=== PATIENT | male | born 1955 | race Caucasian/White ===

== ENCOUNTER 2017-04-19 14:47 | Emergency (ER) | payer MEDICARE ==
[2017-04-19 15:42] LABS: ABSOLUTE EOSINOPHILS # (AUTO) 1.1 10^3/uL (0.0-0.6); ABSOLUTE LYMPHOCYTES (AUTO) 0.9 10^3/uL (0.5-4.7); ABSOLUTE MONOCYTES (AUTO) 0.7 10^3/uL (0.1-1.4); ABSOLUTE NEUT (AUTO) 3.8 10^3/uL (1.7-8.2); BASOPHILS % (AUTO) 0.7 % (0-2); EOSINOPHILS % (AUTO) 17.1 % (0-6); HEMATOCRIT 43.2 % (37.9-51.0); HEMOGLOBIN 14.9 g/dL (13.5-17.0); HGB HCT DIFFERENCE 1.5; LYMPHOCYTES % (AUTO) 13.7 % (13-45); MEAN CORPUSCULAR HEMOGLOBIN 33.6 pg (27.0-33.4); MEAN CORPUSCULAR HGB CONC 34.4 g/dL (32.0-36.0); MEAN CORPUSCULAR VOLUME 98 fl (80-97); MONOCYTES % (AUTO) 10.2 % (3-13); RED BLOOD COUNT 4.43 10^6/uL (4.35-5.55); RED CELL DISTRIBUTION WIDTH 13.8 % (11.5-14.0); SEGMENTED NEUTROPHILS % (AUTO) 58.3 % (42-78); WHITE BLOOD COUNT 6.6 10^3/uL (4.0-10.5)
[2017-04-19 16:08] LABS: ALANINE AMINOTRANSFERASE 56 U/L (21-72); ALBUMIN 4.2 g/dL (3.5-5.0); ALKALINE PHOSPHATASE 136 U/L (38-126); ANION GAP 13 (5-19); ASPARTATE AMINO TRANSFERASE 34 U/L (17-59); BILIRUBIN,DIRECT 0.5 mg/dL (0.0-0.4); BILIRUBIN,TOTAL 0.5 mg/dL (0.2-1.3); BLOOD UREA NITROGEN 11 mg/dL (7-20); CALCIUM 9.5 mg/dL (8.4-10.2); CARBON DIOXIDE 22 mmol/L (22-30); CHLORIDE 107 mmol/L (98-107); CREATININE RESULT 1.19 mg/dL (0.52-1.25); GLUCOSE 92 mg/dL (75-110); POTASSIUM 4.1 mmol/L (3.6-5.0); SODIUM 141.5 mmol/L (137-145); TOTAL PROTEIN 7.2 g/dL (6.3-8.2)
--- NOTE | 2017-04-19 16:42 | ER Document Report ---
ED Skin Rash/Insect Bite/Abscs - General Chief Complaint: Skin Problem Stated Complaint: WOUND PAIN Time Seen by Provider: 04/19/17 15:14 Mode of Arrival: Ambulatory Information source: Patient Notes: Patient is a 62-year-old male with history of chronic wounds to bilateral lower legs who presents to the ER today for what he states is a developing wound to the left lower leg that was not there before. Patient states that it "just popped up this morning, was a blister and I popped it. Then it turned into this " he denies any fevers or chills. Admits to drainage that is yellow from the area. He states that his chronic wound on the right leg started from a brown recluse bite years ago. He has gone to the wound clinic in the past. He has not been doing anything for this. He also complains of wound to the right wrist where his dog accidentally scratched him. He states that happened a week ago. TRAVEL OUTSIDE OF THE [place] IN LAST 30 DAYS: No - Related Data Allergies/Adverse Reactions: No Known Allergies Allergy (Unverified 04/19/17 17:21) Past Medical History - General Information source: Patient - Social History Smoking Status: Current Every Day Smoker Family History: Reviewed & Not Pertinent Patient has suicidal ideation: No Renal/ Medical History: Denies: Hx Peritoneal Dialysis Surgical Hx: Negative Review of Systems - Review of Systems Constitutional: No symptoms reported EENT: No symptoms reported Cardiovascular: No symptoms reported Respiratory: No symptoms reported Gastrointestinal: No symptoms reported Genitourinary: No symptoms reported Male Genitourinary: No symptoms reported Musculoskeletal: No symptoms reported Skin: See HPI Hematologic/Lymphatic: No symptoms reported Neurological/Psychological: No symptoms reported Physical Exam - Vital signs Vitals: Temp Pulse Resp BP Pulse Ox 97.9 F 96 18 145/77 H 97 04/19/17 15:04 04/19/17 15:04 04/19/17 15:04 04/19/17 15:04 04/19/17 15:04 - Notes Notes: PHYSICAL EXAMINATION: GENERAL: Chronically ill-appearing, unkempt, dirty, in no acute distress. HEAD: Atraumatic, normocephalic. EYES: Pupils equal round and reactive to light, extraocular movements intact, sclera anicteric, conjunctiva are normal. NECK: Normal range of motion, supple without lymphadenopathy LUNGS: CTAB and equal. No wheezes rales or rhonchi. HEART: Regular rate and rhythm without murmurs ABDOMEN: Soft, no tenderness. No guarding, no rebound BACK: no vertebral tenderness, normal ROM GI/: no CVA tenderness EXTREMITIES: Normal range of motion, no pitting edema. No cyanosis. NEUROLOGICAL: Cranial nerves grossly intact. Normal sensory/motor exams. PSYCH: Normal mood, normal affect. SKIN: Warm, Dry, normal turgor, erythema/wound approximately 7 cm x 5 cm to the right medial anterior lateral ankle with seepage of clear/yellow fluid, erythema /wound approximately 5 cm x 3 cm to the left anterior lateral ankle with large area of necrosis of the skin overlying center of wound, seepage of clear/yellow fluid, erythema noted to right dorsal wrist, excoriation present, no drainage or open wound Course - Re-evaluation Re-evalutation: 04/19/17 18:11 These wounds appear very chronic in nature, patient will be given Bactrim to cover for infection, however he is afebrile here with normal vital signs and a normal white blood cell count today. Patient has wound care clinic that he follows up with, I advised that he go there, the left ankle needs to be debrided and since he has wound care follow-up they can do that outpatient. I gave him silver sulfadiazine ointment to take home from the emergency department and advised that he apply it once to twice daily, changing the bandaging each time. 04/19/17 18:12 - Vital Signs Vital signs: Temp Pulse Resp BP Pulse Ox 97.6 F 93 18 121/83 97 04/19/17 17:36 04/19/17 17:36 04/19/17 15:04 04/19/17 17:36 04/19/17 17:36 - Laboratory Result Diagrams: 04/19/17 15:25 04/19/17 15:25 Laboratory results interpreted by me: 04/19/17 04/19/17 15:25 15:25 MCV 98 H MCH 33.6 H Plt Count 132 L Eosinophils % 17.1 H Absolute Eosinophils 1.1 H Direct Bilirubin 0.5 H Alkaline Phosphatase 136 H Discharge - Discharge Clinical Impression: Wound of left leg Qualifiers: Encounter type: initial encounter Qualified Code(s): S81.802A - Unspecified open wound, left lower leg, initial encounter Wound of right leg Qualifiers: Encounter type: initial encounter Qualified Code(s): S81.801A - Unspecified open wound, right lower leg, initial encounter Open wound of right wrist Qualifiers: Encounter type: initial encounter Qualified Code(s): S61.501A - Unspecified open wound of right wrist, initial encounter Condition: Stable Disposition: HOME, SELF-CARE Instructions: Dressing Instructions for Open Wounds ([facility]) Additional Instructions: GO TO THE WOUND CARE CLINIC, THEY NEED TO MANAGE THESE WOUNDS!!! Return immediately for any new or worsening symptoms. Follow up with primary care provider, call tomorrow to make followup appointment. Prescriptions: Sulfamethoxazole/Trimethoprim [Bactrim Ds Tablet] 1 each PO BID #20 tablet Referrals: Wound Care [Provider Group] - Follow up as needed
[2017-04-19] MEDS ORDERED: SILVER SULFADIAZINE 1% CREAM 400 GM TP ONE (16:53)
[2017-04-19] MEDS ORDERED: SULFAMETHOXAZOLE/TRIMETHOPRIM 800-160 MG TABLET PO ONE (16:53)
[2017-04-19 17:45] VITALS: BP 121/83
== END 2017-04-19 17:44 | disposition home or self-care (01) ==
LOC: ER 14:47
DX: S81.802A Unspecified open wound, left lower leg, initial encounter (principal); S81.801A Unspecified open wound, right lower leg, initial encounter; S61.501A Unspecified open wound of right wrist, initial encounter; F17.200 Nicotine dependence, unspecified, uncomplicated; X58.XXXA Exposure to other specified factors, initial encounter
CPT/HCPCS: 99283; 36415; 85025; 80053; J3490; A9270

== ENCOUNTER 2017-06-13 13:28 | Emergency (ER) | payer MEDICARE ==
--- NOTE | 2017-06-13 14:41 | ER Document Report ---
ED Medical Screen (RME) - General Chief Complaint: Leg Injury Stated Complaint: WOUND CHECK Mode of Arrival: Wheelchair Information source: Patient TRAVEL OUTSIDE OF THE [place] IN LAST 30 DAYS: No - HPI Onset/Duration: Gradual, Persistent Quality of pain: Burning Associated Symptoms: denies: Fever Notes: 06/13/17 14:40 Patient arrives with complaints of bilateral leg infections. He has been seen by the wound center and was sent to the hospital by them for possible admission for worsening infections. No fever. - Related Data Allergies/Adverse Reactions: No Known Allergies Allergy (Unverified 06/13/17 13:58) Past Medical History Renal/ Medical History: Denies: Hx Peritoneal Dialysis Review of Systems - Review of Systems -: Yes All other systems reviewed and negative Physical Exam - Vital signs Vitals: Temp Pulse Resp BP Pulse Ox 99.0 F 108 H 18 144/78 H 96 06/13/17 13:57 06/13/17 13:57 06/13/17 13:57 06/13/17 13:57 06/13/17 13:57 - Notes Notes: GENERAL: alert, cooperative, nontoxic, no distress. HEAD: normocephalic, atraumatic EYES: conjunctiva pink without discharge, no external redness or swelling. EARS: no external swelling, no external redness NOSE: atraumatic, no external swelling MOUTH/THROAT: mucous membranes moist and pink NECK: soft, supple, full range of motion, no meningismus. CHEST: no distress, lungs clear and equal throughout. No wheezing, rales, rhonchi. CARDIAC: regular rate and rhythm, no murmur, normal capillary refill, normal pulses. BACK: full range of motion, no CVA tenderness. EXTREMITIES: Bandages to the lower extremities bilaterally. NEURO: alert and oriented 3, no focal deficits, full range of motion of all extremities. PYSCH: appropriate mood, affect. Patient is cooperative. SKIN: pink, warm, dry, no rash. Course - Vital Signs Vital signs: Temp Pulse Resp BP Pulse Ox 99.0 F 108 H 18 144/78 H 96 06/13/17 13:57 06/13/17 13:57 06/13/17 13:57 06/13/17 13:57 06/13/17 13:57
[2017-06-13 16:11] LABS: ABSOLUTE BASOPHILS # (AUTO) 0.1 10^3/uL (0.0-0.2); ABSOLUTE EOSINOPHILS # (AUTO) 1.7 10^3/uL (0.0-0.6); ABSOLUTE LYMPHOCYTES (AUTO) 1.6 10^3/uL (0.5-4.7); ABSOLUTE MONOCYTES (AUTO) 0.9 10^3/uL (0.1-1.4); BASOPHILS % (AUTO) 0.5 % (0-2); EOSINOPHILS % (AUTO) 12.5 % (0-6); HEMATOCRIT 44.2 % (37.9-51.0); HEMOGLOBIN 15.1 g/dL (13.5-17.0); HGB HCT DIFFERENCE 1.1; LYMPHOCYTES % (AUTO) 12.2 % (13-45); MEAN CORPUSCULAR HEMOGLOBIN 33.1 pg (27.0-33.4); MEAN CORPUSCULAR HGB CONC 34.3 g/dL (32.0-36.0); MEAN CORPUSCULAR VOLUME 96 fl (80-97); MONOCYTES % (AUTO) 6.7 % (3-13); RED BLOOD COUNT 4.58 10^6/uL (4.35-5.55); SEGMENTED NEUTROPHILS % (AUTO) 68.1 % (42-78); WHITE BLOOD COUNT 13.2 10^3/uL (4.0-10.5)
[2017-06-13 16:37] LABS: ALANINE AMINOTRANSFERASE 39 U/L (21-72); ALKALINE PHOSPHATASE 82 U/L (38-126); ANION GAP 14 (5-19); ASPARTATE AMINO TRANSFERASE 27 U/L (17-59); BILIRUBIN,DIRECT 0.5 mg/dL (0.0-0.4); BILIRUBIN,TOTAL 0.8 mg/dL (0.2-1.3); BLOOD UREA NITROGEN 11 mg/dL (7-20); CALCIUM 9.4 mg/dL (8.4-10.2); CARBON DIOXIDE 25 mmol/L (22-30); CHLORIDE 105 mmol/L (98-107); CREATININE RESULT 1.13 mg/dL (0.52-1.25); GLUCOSE 87 mg/dL (75-110); POTASSIUM 4.6 mmol/L (3.6-5.0); SODIUM 143.9 mmol/L (137-145); TOTAL PROTEIN 7.1 g/dL (6.3-8.2)
[2017-06-13] MEDS ORDERED: DIPHENHYDRAMINE HCL 50 MG/ML VIAL IV ONE (19:54)
[2017-06-13] MEDS ORDERED: METHYLPREDNISOLONE INJ 125 MG/2 ML SDV IV ONE (19:54)
[2017-06-13] MEDS ORDERED: MORPHINE SULFATE 10 MG/ML INJ IV ONE (19:55)
[2017-06-13] MEDS ORDERED: FAMOTIDINE INJ/PF 20 MG/2 ML SDV IV ONE (19:55)
[2017-06-13] MEDS ORDERED: HYDROCODONE/ACETAMINOPHEN 5-325 MG 6 TAB/DSPK PO PRN (21:52)
[2017-06-13] MEDS ORDERED: DIPHENHYDRAMINE HCL 25 MG CAPSULE PO ONE (21:58)
--- NOTE | 2017-06-13 22:12 | ER Document Report ---
ED General - General Chief Complaint: Leg Injury Stated Complaint: WOUND CHECK Time Seen by Provider: 06/13/17 19:38 Mode of Arrival: Wheelchair Information source: Patient, Relative TRAVEL OUTSIDE OF THE [place] IN LAST 30 DAYS: No - HPI Notes: Patient is a 62-year-old smoker with chronic venous stasis ulcers on both lower extremities comes in from the wound care clinic with report that he needs further evaluation for more of a disseminated rash. The patient has been on Bactrim antibiotic for the last 2 weeks and reports the generalized body rash is coincident with his Bactrim dosing. The patient also reports previous allergy reaction to Silvadene cream in the past. The patient denies any chest pain or shortness of breath or mucous membrane lesions. The patient reports no fever or chills. The patient denies any numbness or paresthesia. - Related Data Allergies/Adverse Reactions: No Known Allergies Allergy (Unverified 06/13/17 13:58) Past Medical History - General Information source: Patient - Social History Smoking Status: Current Every Day Smoker Chew tobacco use (# tins/day): No Frequency of alcohol use: None Drug Abuse: None Family History: Reviewed & Not Pertinent Renal/ Medical History: Denies: Hx Peritoneal Dialysis Surgical Hx: Negative - Immunizations Hx Diphtheria, Pertussis, Tetanus Vaccination: Yes Review of Systems - Review of Systems Notes: Nonvisualized is REVIEW OF SYSTEMS: CONSTITUTIONAL : Denies fever, chills, or sweats. Denies recent illness. EENT: Denies eye, ear, throat, or mouth pain or symptoms. Denies nasal or sinus congestion or discharge. Denies throat, tongue, or mouth swelling or difficulty swallowing. CARDIOVASCULAR: Denies chest pain. Denies palpitations or racing or irregular heart beat. Denies ankle edema. RESPIRATORY: Denies cough, cold, or chest congestion. Denies shortness of breath, difficulty breathing, or wheezing. GASTROINTESTINAL: Denies abdominal pain or distention. Denies nausea, vomiting , or diarrhea. Denies blood in vomitus, stools, or per rectum. Denies black, tarry stools. Denies constipation. GENITOURINARY: Denies difficulty urinating, painful urination, burning, frequency, blood in urine, or discharge. MUSCULOSKELETAL: Denies back or neck pain or stiffness. Denies joint pain or swelling. SKIN: Rash HEMATOLOGIC : Denies easy bruising or bleeding. LYMPHATIC: Denies swollen, enlarged glands. NEUROLOGICAL: Denies confusion or altered mental status. Denies passing out or loss of consciousness. Denies dizziness or lightheadedness. Denies headache. Denies weakness or paralysis or loss of use of either side. Denies problems with gait or speech. Denies sensory loss, numbness, or tingling. Denies seizures. PSYCHIATRIC: Denies anxiety or stress. Denies depression, suicidal ideation, or homicidal ideation. ALL OTHER SYSTEMS REVIEWED AND NEGATIVE. Dictation was performed using [employer] voice recognition software Physical Exam - Vital signs Vitals: Temp Pulse Resp BP Pulse Ox 99.0 F 108 H 18 144/78 H 96 06/13/17 13:57 06/13/17 13:57 06/13/17 13:57 06/13/17 13:57 06/13/17 13:57 - Notes Notes: PHYSICAL EXAMINATION: GENERAL: Well-appearing, well-nourished and itching generally. No obvious significant distress. HEAD: Atraumatic, normocephalic. EYES: Pupils equal round and reactive to light, extraocular movements intact, sclera anicteric, conjunctiva are normal. ENT: Nares patent, oropharynx clear without exudates. Moist mucous membranes. NECK: Normal range of motion, supple without lymphadenopathy LUNGS: Breath sounds clear to auscultation bilaterally and equal. No wheezes rales or rhonchi. HEART: Regular rate and rhythm without murmurs ABDOMEN: Soft, nontender, nondistended abdomen. No guarding, no rebound. No masses appreciated. Musculoskeletal: Normal range of motion, no pitting or edema. No cyanosis. NEUROLOGICAL: Cranial nerves grossly intact. Normal speech, normal gait. Normal sensory, motor exams PSYCH: Normal mood, normal affect. SKIN: Generalized dermatitis with minimal urticaria with stage II decubiti noted on the lower extremities above the ankles. The patient has adequate capillary refill and DP pulses. No evidence for infection. No proximal erythema or adenopathy. Distally the patient is neurovascularly intact. Course - Re-evaluation Re-evalutation: 06/13/17 22:18 Patient was given IV Benadryl, Solu-Medrol, Pepcid, morphine. Wound areas were cleaned and after minimal saline soak, the lower extremity dry dressings were removed and the wound was cleaned again and a minimally moistened with saline gauze wet-to-dry was placed upon the wounds. Patient was given [facility] to take home with him. Patient was advised to avoid sulfa-containing medications hereto forward. Patient has follow-up with home health care which will perform dressing changes 3 times a week, and he has a follow-up with wound care center. 06/13/17 22:20 - Vital Signs Vital signs: Temp Pulse Resp BP Pulse Ox 99.0 F 108 H 18 144/78 H 96 06/13/17 13:57 06/13/17 13:57 06/13/17 13:57 06/13/17 13:57 06/13/17 13:57 - Laboratory Result Diagrams: 06/13/17 15:37 06/13/17 15:37 Laboratory results interpreted by me: 06/13/17 06/13/17 15:37 15:37 WBC 13.2 H Lymphocytes % 12.2 L Eosinophils % 12.5 H Absolute Neutrophils 9.0 H Absolute Eosinophils 1.7 H Direct Bilirubin 0.5 H Discharge - Discharge Clinical Impression: Decubitus skin ulcer Qualifiers: Pressure ulcer location: calf Pressure ulcer stage: stage 2 Laterality: unspecified laterality Qualified Code(s): L89.892 - Pressure ulcer of other site , stage 2 Allergic reaction caused by a drug Qualifiers: Encounter type: initial encounter Qualified Code(s): T78.40XA - Allergy, unspecified, initial encounter Condition: Stable Disposition: HOME, SELF-CARE Instructions: Acute Allergic Reaction ([facility]), Decubitus Ulcer ([facility]) Additional Instructions: Put wound dressing on only once per day with either dry gauze or wet to dry dressing with saline. Take Benadryl up to 50 mg every 4 hours as needed for itching. Return to the emergency department case of fever or difficulty breathing. Stop taking sulfa medication / bactrim as you are allergic. \ Follow-up with the wound care clinic within 2 days. Prescriptions: Hydrocodone/Acetaminophen [[facility] 5-325 Tablet] 1 - 2 tab PO Q4HP PRN #25 tab PRN Reason: Prednisone [Sterapred Ds] 1 pkg PO ASDIR PRN 12 Days tab.ds.pk PRN Reason:
[2017-06-13 22:50] VITALS: BP 126/84
== END 2017-06-13 22:49 | disposition home or self-care (01) ==
LOC: ER 13:28
DX: L89.892 Pressure ulcer of other site, stage 2 (principal); T78.40XA Allergy, unspecified, initial encounter; R21 Rash and other nonspecific skin eruption; F17.200 Nicotine dependence, unspecified, uncomplicated
CPT/HCPCS: 99283; 96374; 96375; 36415; 85025; 80053; A9270 ×2; J1200; J2930; J2270; S0028